=== PATIENT | female | born 1980 | race Caucasian/White ===

== ENCOUNTER 2023-08-23 08:00 | Outpatient (CLI) | payer BC, SELFPAY | END 2023-08-23 08:01 | disposition home or self-care (01) | LOC: NFLDREF 13:34 | PROVIDERS: Visit Provider Physician Assistant | DX: Z01.419 Encounter for gynecological examination (general) (routine) without abnormal findings (principal); Z13.6 Encounter for screening for cardiovascular disorders; Z13.1 Encounter for screening for diabetes mellitus; Z13.29 Encounter for screening for other suspected endocrine disorder; Z13.9 Encounter for screening, unspecified; Z12.4 Encounter for screening for malignant neoplasm of cervix | CPT/HCPCS: 80053; 80061; 84443 ==

== ENCOUNTER 2023-08-24 07:56 | Outpatient (CLI) | payer BC, SELFPAY | END 2023-08-24 07:57 | disposition home or self-care (01) | LOC: NFLDREF 09-09 09:02 | PROVIDERS: Visit Provider Physician Assistant | DX: Z01.419 Encounter for gynecological examination (general) (routine) without abnormal findings (principal); R74.8 Abnormal levels of other serum enzymes | CPT/HCPCS: 80074; 80076; 86039; 86256; 86376; 87517 ==

== ENCOUNTER 2023-08-25 14:45 | Outpatient (CLI) | payer BC, SELFPAY | END 2023-08-25 14:46 | disposition home or self-care (01) | LOC: NFLDREF 09-08 11:18 | PROVIDERS: Visit Provider Physician Assistant | DX: R74.8 Abnormal levels of other serum enzymes (principal) | CPT/HCPCS: 85610 ==

== ENCOUNTER 2023-08-30 14:07 | Outpatient (CLI) | payer BC, SELFPAY | END 2023-08-30 14:08 | disposition home or self-care (01) | LOC: NFLDREF 09-13 10:27 | PROVIDERS: Visit Provider Physician Assistant | DX: B19.10 Unspecified viral hepatitis B without hepatic coma (principal) | CPT/HCPCS: 80076; 86703 ==

== ENCOUNTER 2023-09-02 15:55 | Outpatient (CLI) | payer BC, SELFPAY ==
--- NOTE | 2023-09-02 16:00 | US_ITS ---
Patient: KUSH YING Facility:?[facility] RIS Patient ID:?[id number] Site Patient ID:?[id number]. Site :?1980 Study:?US-Abdomen RUQ-09/02/2023 4:31:07 PM Ordering Physician:LEEANN SEPTEMBER Final Report: INDICATION: Markedly elevated liver enzymes. COMPARISON: None. TECHNIQUE: Real time candelario scale imaging and color Doppler analysis was performed of the right upper quadrant. FINDINGS: Liver: The liver is normal in size measuring 16.0 cm in length. Normal echogenicity. No focal liver lesions identified. Gallbladder: No stones or sludge. No wall thickening or pericholecystic fluid. Negative sonographic Chou sign. Bile ducts: The common bile duct measures 5 mm in diameter. Pancreas: Normal where seen. Right kidney: The right kidney measures 10.3 cm in length. Mild pelvocaliectasis. No calculus or mass. Vascular: Normal caliber proximal abdominal aorta. The IVC and main portal vein appear patent. IMPRESSION: 1. Normal sonographic appearance of the liver. 2. Mild right renal pelvocaliectasis. 3. Exam otherwise unremarkable. Dictated by Diane Sanches MD @ 09/03/2023 2:58:00 AM Signed by:?Diane Sanches MD @09/03/2023 2:58:00 AM (Electronic Signature)
== END 2023-09-02 15:56 | disposition home or self-care (01) ==
LOC: US 15:57
PROVIDERS: Visit Provider Physician Assistant
DX: R74.8 Abnormal levels of other serum enzymes (principal)
CPT/HCPCS: 76705

== ENCOUNTER 2023-11-15 15:35 | Outpatient (CLI) | payer BC, SELFPAY ==
--- NOTE | 2023-11-15 15:20 | MM_ITS ---
Patient: KUSH YING Facility:?[facility] RIS Patient ID:?[id number] Site Patient ID:?[id number]. Site :?[id number] Study:?XRay-Breast Bilateral 3D W/CAD-11/15/2023 5:08:59 PM Ordering Physician:Miguel September Final Report: BILATERAL DIGITAL SCREENING MAMMOGRAM WITH COMPUTER-AIDED DETECTION AND TOMOSYNTHESIS CLINICAL HISTORY: Routine screening exam. COMPARISON: 03/16/2021, 04/05/2014. TECHNIQUE: Digital mammogram in CC and MLO projections including computer-aided detection (CAD). Tomosynthesis was used in this interpretation. BREAST COMPOSITION: The breasts are heterogeneously dense, which may obscure small masses. FINDINGS: RIGHT Breast: No suspicious findings. LEFT Breast: Focal asymmetric density within the retroareolar plane 7 cm from the nipple, slightly medial. IMPRESSION: LEFT breast asymmetry/mass. RECOMMENDATIONS: Additional mammographic views of the LEFT breast including 3D spot compression CC/MLO. LEFT breast ultrasound may also be required. BI-RADS Category 0: Incomplete: Need Additional Imaging Evaluation and/or Prior Mammograms for Comparison [facility] will contact the patient for follow-up. A lay language report of this examination will be provided to the patient. Dictated by Parmjit Chicas MD @ 11/16/2023 9:19:33 AM jj/Dictated by: Parmjit Chicas MD @ 11/16/2023 9:19:00 AM Signed by:?Parmjit Chicas MD @11/16/2023 12:02:29 PM (Electronic Signature)
--- OUTSIDE RECORDS SUMMARY | 2023-11-15 15:38 | XMS_ITS | Clinical Summary ---
Author Name Unknown Organization [facility] Address [place], [place] [address] Care Team Providers Care Assistant Facility Manager Name Role Phone Corrine Lomeli MD Unavailable [phone] Pcp, No Primary Care Provider Unavailabl e Allergies No known active allergies Medications Medication Sig Dispensed Refills Start Date End Date Status azithromycin (ZITHROMAX) 250 mg tabletIndications:Cou gh Take by mouth. 2 oral first day, then 1 oral daily from days 2-5 6 tablet 0 10/13/2011 Active albuterol (PROVENTIL; VENTOLIN) 90 mcg/actuation inhalerIndications:Co ugh Inhale 2 Puffs by mouth. As needed 1 Inhaler 0 10/13/2011 Active Active Problems Problem Noted Date Diagnosed Date Overweight(278.02) Family History Medical History Relation Name Comments Good Health Mother Relation Name Status Comments Mother Social History Tobacco Use Types Packs/Day Years Used Date Smoking Tobacco: Former Smokeless Tobacco: Never Alcohol Use Standard Drinks/Week Comments Yes 0 (1 standard drink = 0.6 oz pur e alcohol) socially Sex and Gender Information Value Date Recorded Sex Assigned at Not on file Gender Identity Not on file Sexual Orientation Not on file Obstetrics History Last Filed Vital Signs Vital Sign Reading Time Taken Comments Blood Pressure 100/72 10/13/2011 8:42 AM CDT Pulse 99 10/13/2011 8:42 AM CDT Temperature 36.9 ??C (98.5 ??F) 10/13/2011 8:42 AM CD T Respiratory Rate 14 02/16/2010 3:15 PM CDT Oxygen Saturation 94% 10/13/2011 8:42 AM CDT Inhaled Oxygen Concentration - - Weight 97.8 kg (215 lb 8 oz) 10/13/2011 8:42 AM CDT Height 162.6 cm (5' 4) 12/02/2008 11:14 AM CDT Body Mass Index 36.99 12/02/2008 11:14 AM CDT Plan of Treatment Health Maintenance Due Date Last Done Comments Tdap 10/17/1990 Depression screening for age 12+ 1991 HIV for age 15-65 10/17/1994 BMI (ht and wt on same day) for age 18+ 10/17/1997 Hepatitis C screening for age 18-79 10/17/1997 Tetanus booster 1999 COVID-19 vaccine series ( season) 2023 Influenza for age 9-49 02/26/2024 Pap test for age 21-65 08/16/2026 , 08/16/2023, 02/02/2021, Additional history exists Pneumococcal series for age 6-64 Aged Out No longer eligible based on patient's age to complete this topic Procedures Procedure Name Priority Date/Time Associated Diagnosis Comments HPV THIN PREP Routine 08/16/2023 6:30 PM CARTON INSPECTOR from Last 3 Months or Most Recently Relevant to Health Maintenance Results * HPV HIGH RISK (08/16/2023 6:30 PM CARTON INSPECTOR) TYPE 16 Negative Negative 08/19/2023 1:42 PM CARTON INSPECTOR [facility] LAB[facility] TYPE 18 Negative Negative 08/19/2023 1:42 PM CARTON INSPECTOR [facility] TRAL LABORATORY OTHER HIGH RISK TYPES Negative Negative 08/19/2023 1:42 PM CARTON INSPECTOR [facility] TRAL LABORATORY Other (Cervical) 08/16/2023 6:30 PM CARTON INSPECTOR 08/18/2023 9:58 AM CARTON INSPECTOR Narrative [facility] - 08/19/2023 1:42 PM CARTON INSPECTOR HPV types 16, 18, 31, 33, 35, 39, 45, 51, 52, 56, 58, 59, 66 and 68 DNA were undetectable or below the pre-set threshold. Methodology: [employer] 4800 HPV Test Charissa L Alessio [facility] LABORATORY-CENTRAL LABORATORY [address] [place] [address], from Last 3 Months or Most Recently Relevant to Health Maintenance Care Teams Assistant Facility Manager Relationship Specialty Start Date End Date Pcp, No . PCP - General 08/18/16 Corrine Lomeli MD 09/17/08
--- OUTSIDE RECORDS SUMMARY | 2023-11-15 15:38 | XMS_ITS | Continuity of Care Document ---
Author Name Unknown Address [address] [place] [address] Phone [phone] Organization [facility], [facility] Address [address] [place] [address] Assessment Encounter Date Assessment Date Assessment LastModified by Organization Details LastModified Time 10/25/2023 10/25/2023 43 Y/O FEMALE, REFERRED FOR MILD RT HYDRO. ASYMPTOMATIC. REVIEWED FINDINGS AND DISCUSSED OPTION. REVIEWED RENAL U/S. PLAN SCHEDULE LASIX RENAL SCAN TO ASSESS RT RENAL FUNCTION AND IF ANY SIGNIFICANT HYDRO NOTED.WILL CALL RESULTS rugart Not available 10/26/2023 13:52:45 Plan of Treatment Reminders Order Date Submit Date Provider Last Modified By Organization Details Last Modified Time Details Appointments None record ed. Lab None record ed. Referral None record ed. Procedures None record ed. Surgeries None record ed. Imaging None record ed. Medication Orders None record ed. Patient TargetsNo targets recorded. Patient InstructionsNo instructions recorded. Reason for Referral None Reported. Problems Name Status Onset Date Resolution Date Notes Provider Name and Address Organization Details Recorded Time Hydronephrosis Active 10/26/19 24 Jonas Tariq MD [address] [place] [address],[address], [place], [address], [facility] 10/26/2023 13:52:52 Problem Notes None recorded. Medical Equipment None Reported. Allergies Allergen ID Allergen Name Allergen Category Reaction Reaction Severity Criticality Documentation Date Start Date Code Code System Note Provider Name and Address Organization Details Recorded Time 716154 Demerol medicatio n Not available Not available Not available 10/25/2023 82535 1 RxNorm Jonas Tariq MD [address] [place] [address],[address] [place] [address], [phone], [facility] 16:30:48 Medications Name Sig Start Date Stop Date Status Note LastModified by Organization Details LastModified Time tenofovir disoproxil fumarate 300 mg tablet active Not Available Not Available Not Available cyclobenzaprine 5 mg tablet 10/24 completed Not Available Not Available Not Available bupropion HCl XL 150 mg 24 hr tablet, extended release active Not Available Not Available Not Available Vitals Date Recorded Body height Body mass index (BMI) Body weight Provider Name and Address Organization Details Last Updated DateTime 10/25/2023 162.56 cm 32.6 kg/m2 98237.55 g Jonas Tariq MD [address] [place] [address],[address], [address] [place] [address] Urolog 10/25/2023 16:30:43 Social History Question Answer Notes LastModified by Organizat ion Details LastModified Time Tobacco Smoking Status Current Every Day Smoker Jonas Tariq MD [address] [place] [address], [address], [facility] 10/25/2023 16:31:27 What Is Your Level Of Alcohol Consumption? None Information not available 10/25/2023 What Was The Date Of Your Most Recent Tobacco Screening? 10/25/2023 Information not available 10/25/2023 Sex: Female Functional Status None recorded. Mental Status None recorded. Family History Nothing Reported. Medical History Condition Response Diabetes N Sexually Transmitted Infection N Other N Bleeding Disorder N High Blood Pressure N Kidney Stones N High Cholesterol N GERD/Acid Reflux N Heart Disease N Cancer N Lung Disease N Depression N Gynecological HistoryNo gynecological history recorded. Obstetrics History GPAL:G 0 P 0 0 0 0 Immunizations Vaccine Type Date Status Provider Name and Address Organization Details Recorded Time Tdap 11/11/2011 completed Jonas Tariq MD [address] [place] [address],[address], [address], [facility] 10/25/2023 16:30:53 Td (adult), 2 Lf tetanus toxoid, preservative free, adsorbed 08/16/2023 completed Jonas Tariq MD [address] [place] [address],[address], [address], [facility] 10/25/2023 16:30:53 influenza, live, intranasal, quadrivalent 04/15/2014 completed Jonas Tariq MD [address] [place] [address],[address], [address], [facility] 10/25/2023 16:30:53 Influenza, injectable, MDCK, preservative free 04/08/2016 completed Jonas Tariq MD [address] [place] [address],[address], [address], [facility] 10/25/2023 16:30:53 Past Encounters Encounter ID Performer Location Encounter Start Date Encounter Closed Date Diagnosis/Indication Diagnosis SNOMED-CT Code [id number] Jonas Tariq MD [facility] [address] [place] [id number] 10/25/2023 16:21:57 10/31/2023 11:12:01 Hydronephrosis [id number] Health Concerns Section Related Observation LastModified by Organization Detai ls LastModified Time None Recorded Concern Status LastModified by Organization Details LastModified Time None Recorded Payers Encounter Date Sequence Insurance Name Policy Number Policy Rodney Covered Member ID Rodney Member ID Guarantor Name 10/25/2023 1 [facility] [id number] Radha Phillips [id number] Radha Phillips Notes Date Note Type Note Provider Name and Address Organization Details Recorded Time 10/25/2023 text/html HPI Notes: 43 YOF HERE FOR MILD RT PELVICALYECTA SIS. SEEN ON US.. ASYMPTOMATIC. SEEN ON EXAM FOR LIVER EVALUATION. Jonas Tariq MD [address] [place] [address],[facility] [address], [place], [address], [facility] 10/26/2023 13:53:12 OBGyn Episode No OBEpisode recorded.
--- OUTSIDE RECORDS SUMMARY | 2023-11-15 15:38 | XMS_ITS | Data Portability ---
Author Name Unknown Address [address] [place] [address] Phone [phone] Organization [facility], [facility] Address [address] [place] [address] Assessment Encounter Date Assessment Date Assessment LastModified by Organization Details LastModified Time 10/25/2023 10/25/2023 43 Y/O FEMALE, REFERRED FOR MILD RT HYDRO. ASYMPTOMATIC. REVIEWED FINDINGS AND DISCUSSED OPTION. REVIEWED RENAL U/S. PLAN SCHEDULE LASIX RENAL SCAN TO ASSESS RT RENAL FUNCTION AND IF ANY SIGNIFICANT HYDRO NOTED.WILL CALL RESULTS Not available 10/26/2023 13:52:45 Plan of Treatment [...] Hydronephrosis Active 10/26/19 24 Jonas Tariq MD [address] [place] [address],[address], [address], [facility] 10/26/2023 13:52:52 Problem Notes None recorded. Medical Equipment None Reported. Allergies Allergen ID Allergen Name Allergen Category Reaction Reaction Severity Criticality Documentation Date Start Date Code Code System Note Provider Name and Address Organization Details Recorded Time 497511 Demerol medicatio n Not available Not available Not available 10/25/2023 87405 1 RxNorm Jonas Tariq MD [address] [place] [address],[address], [address], [facility] 16:30:48 Medications Name Sig [...] Updated DateTime 10/25/2023 162.56 cm 32.6 kg/m2 94112.55 g Jonas Tariq MD [address] [place] [address], [phone] 10/25/2023 16:30:43 Social History Question Answer Notes LastModified by Organizat ion Details LastModified Time Tobacco Smoking Status Current Every Day Smoker Jonas Tariq MD [address] [place] [address], [phone], [facility] 10/25/2023 16:31:27 What Is Your Level Of [...] Time Tdap 11/11/2011 completed Jonas Tariq MD [address] [place] [address],[address], [address], [facility] 10/25/2023 16:30:53 Td (adult), 2 Lf tetanus toxoid, preservative free, adsorbed 08/16/2023 completed Jonas Tariq MD [address] [place] [address], [address], [facility] 10/25/2023 16:30:53 influenza, live, intranasal, quadrivalent 04/15/2014 completed Jonas Tariq MD [address] [place] [address],[address] [place] [address], [phone], [facility] 10/25/2023 16:30:53 Influenza, injectable, MDCK, preservative free 04/08/2016 completed Jonas Tariq MD [address] [place] [address],[facility] [address], [address], [facility] 10/25/2023 16:30:53 Past Encounters Encounter ID Performer Location Encounter Start Date Encounter Closed Date Diagnosis/Indication Diagnosis SNOMED-CT Code [id number] Jonas Tariq MD [facility] [address] [place] [id number] 10/25/2023 16:21:57 10/31/2023 11:12:01 Hydronephrosis [id number] Health Concerns Section Related Observation LastModified by Organization Detai ls LastModified Time None Recorded Concern Status LastModified by Organization Details LastModified Time None Recorded Advance Directives Directive None Recorded Payers Encounter Date Sequence Insurance Name Policy Number Policy Rodney Covered Member ID Rodney Member ID Guarantor Name 10/25/2023 1 [facility] [id number] Radha Phillips [id number] Radha Phillips Notes Date Note Type Note Provider Name and Address Organization Details Recorded Time 10/25/2023 text/html HPI Notes: 43 YOF HERE FOR MILD RT PELVICALYECTA SIS. SEEN ON US.. ASYMPTOMATIC. SEEN ON EXAM FOR LIVER EVALUATION. Jonas Tariq MD [address] [place] [address],[address], [place], [address], [facility] 10/26/2023 13:53:12 OBGyn Episode No OBEpisode recorded.
== END 2023-11-15 15:36 | disposition home or self-care (01) ==
LOC: MAMMO 15:35
PROVIDERS: Visit Provider Physician Assistant
DX: Z12.31 Encounter for screening mammogram for malignant neoplasm of breast (principal); N63.20 Unspecified lump in the left breast, unspecified quadrant; R92.2 Inconclusive mammogram
CPT/HCPCS: 77063; 77067

== ENCOUNTER 2023-11-29 11:55 | Outpatient (CLI) | payer BC, SELFPAY ==
--- OUTSIDE RECORDS SUMMARY | 2023-11-29 11:59 | XMS_ITS | Clinical Summary ---
Author Organization [facility] Address [place], [place] [address] Care Team Providers Care Box Office Manager Name Role Phone Corrine Lomeli MD Unavailable [phone] Pcp, No Primary Care Provider Unavailabl [...] 10/17/1997 Tetanus booster 1999 COVID-19 vaccine series (2022-24 season) 2023 Influenza for age 9-49 02/26/2024 Pap test for age 21-65 08/16/2026 , 08/16/2023, 02/02/2021, Additional history exists Pneumococcal series for age 6-64 Aged Out No longer eligible based on patient's age to complete this topic Procedures Procedure Name Priority Date/Time Associated Diagnosis Comments HPV THIN PREP Routine 08/16/2023 6:30 PM TAR ROOFER from Last 3 Months or Most Recently Relevant to Health Maintenance Results * HPV HIGH RISK (08/16/2023 6:30 PM TAR ROOFER) TYPE 16 Negative Negative 08/19/2023 1:[address] [facility] TR[facility] LABORATORY TYPE 18 Negative Negative 08/19/2023 1:42 PM TAR ROOFER [facility] TRAL LABORATORY OTHER HIGH RISK TYPES Negative Negative 08/19/2023 1:42 PM TAR ROOFER [facility] TRAL LABORATORY Other (Cervical) 08/16/2023 6:30 PM TAR ROOFER 08/18/2023 9:58 [address] [facility] - 08/19/2023 1:42 PM TAR ROOFER HPV types 16, 18, 31, 33, 35, 39, 45, 51, 52, 56, 58, 59, 66 and 68 DNA were undetectable or below the pre-set threshold. Methodology: [employer] 4800 HPV Test Charissa [facility] [employer] LABORATORY-CENTRAL LABORATORY [address] [place] [address], from Last 3 Months or Most Recently Relevant to Health Maintenance Care Teams Box Office Manager Relationship Specialty Start Date End Date Pcp, No . PCP - General 08/18/16 Corrine Lomeli MD 09/17/08
--- OUTSIDE RECORDS SUMMARY | 2023-11-29 11:59 | XMS_ITS | Data Portability ---
Author Organization [facility], [facility] Address [address] [place] [address] [place] [address] Assessment Encounter Date Assessment Date Assessment LastModified [...] Hydronephrosis Active 10/26/19 24 Jonas Tariq MD [address] [place] [address],[address] [place] [address], [address], [facility] 10/26/2023 13:52:52 Problem Notes None recorded. Medical Equipment None Reported. Allergies Allergen ID Allergen Name Allergen Category Reaction Reaction Severity Criticality Documentation Date Start Date Code Code System Note Provider Name and Address Organization Details Recorded Time 092394 Demerol medicatio n Not available Not available Not available 10/25/2023 47227 1 RxNorm Jonas Tariq MD [address] [place] [address],[address] [place] [address], [phone], [facility] 16:30:48 Medications Name Sig Start Date [...] Updated DateTime 10/25/2023 162.56 cm 32.6 kg/m2 43399.55 g Jonas Tariq MD [address] [place] [address],[address], [phone] [place] [address] Urology 10/25/2023 16:30:43 Social History Question Answer Notes LastModified by Organizat ion Details LastModified Time Tobacco Smoking Status Current Every Day Smoker Jonas Tariq MD [address] [place] [address],[address], [address], [facility] 10/25/2023 16:31:27 What Is Your Level Of Alcohol Consumption? None Information not available 10/25/2023 What Was The Date Of Your Most Recent Tobacco Screening? 10/25/2023 Information not available 10/25/2023 Sex: Female Functional Status None recorded. Mental Status None recorded. Family History Nothing Reported. Medical History Condition Response Sexually Transmitted Infection N Diabetes N Other N Bleeding Disorder N High Blood Pressure N Kidney Stones N High Cholesterol N GERD/Acid Reflux N Heart Disease N Cancer N Lung Disease N Depression N Gynecological HistoryNo gynecological history recorded. Obstetrics History GPAL:G 0 P 0 0 0 0 Immunizations Vaccine Type Date Status Provider Name and Address Organization Details Recorded Time Tdap 11/11/2011 completed Jonas Tariq MD [address] [place] [address],[address] [place] [address], [phone], [facility] 10/25/2023 16:30:53 Td (adult), 2 Lf tetanus toxoid, preservative free, adsorbed 08/16/2023 completed Jonas Tariq MD [address] [place] [address],[address], [place], [address], [facility] 10/25/2023 16:30:53 Influenza, live, quadrivalent, intranasal 04/15/2014 completed Jonas Tariq MD [address] [facility],[address], [place], [address], [facility] 10/25/2023 16:30:53 Influenza, MDCK, trivalent, PF 04/08/2016 completed Jonas Tariq MD [address] [place] [address],[address], [place], [address], [facility] 10/25/2023 16:30:53 Past Encounters Encounter ID Performer Location Encounter Start Date Encounter Closed Date Diagnosis/Indication Diagnosis SNOMED-CT Code [id number] Jonas Tariq MD [facility] [address] [place] [address] 10/25/2023 16:21:57 10/31/2023 11:12:01 Hydronephrosis [id number] Health Concerns Section Related Observation LastModified by Organization Detai ls LastModified Time None Recorded Concern Status LastModified by Organization Details LastModified Time None Recorded Advance Directives Directive None Recorded Payers Encounter Date Sequence Insurance Name Policy Number Policy Rodney Covered Member ID Rodney Member ID Guarantor Name 10/25/2023 1 [facility] [id number] Radha Phillips [id number] Radha Phillips Notes Date Note Type Note Provider Name and Address Organization Details Recorded Time 10/25/2023 text/html HPI Notes: 43 YOF HERE FOR MILD RT PELVICALYECTA SIS. SEEN ON US.. ASYMPTOMATIC. SEEN ON EXAM FOR LIVER EVALUATION. Jonas Tariq MD [address] [place] [address],[address], [place], [address], [facility] 10/26/2023 13:53:12 OBGyn Episode No OBEpisode recorded.
--- NOTE | 2023-11-29 12:00 | CRLHL7_ITS ---
For Patients: As a result of the Century Cures Act, medical imaging exams and procedure reports are released immediately into your electronic medical record. You may view this report before your referring provider. If you have questions, please contact your health care provider. INDICATION: Hydronephrosis not otherwise specified. (Reported mild right renal pelvicaliectasis on a prior right upper quadrant ultrasound September 02, 2023). TECHNIQUE: 10.1 mCi Tc-99m labeled Mag 3. 20 mg IV Lasix at 20 minutes. COMPARISON: None. Correlation is made with a right upper quadrant ultrasound September 02, 2023. FINDINGS: Symmetric flow to the kidneys. Symmetrical extraction and excretion of tracer bilaterally. Symmetric T1 half-time after Lasix administration 28.3 minutes for each kidney. The images provided suggest bilateral mild pelvocaliectasis right minimally more so than the left without yu hydronephrosis. Differential renal function 67 percent on the left and 33 percent on the right. IMPRESSION: 1. No scintigraphic evidence for hydronephrosis. 2. The scintigraphic appearance suggests bilateral pelvocaliectasis right minimally more so than the left without yu hydronephrosis. 3. Symmetric T1 half-time after Lasix administration. Dictated by Gianfranco Riddle MD @ 11/30/2023 9:34:09 AM (Electronically Signed)
== END 2023-11-29 11:56 | disposition home or self-care (01) ==
LOC: NM 11:58
PROVIDERS: Visit Provider Urology
DX: N13.30 Unspecified hydronephrosis (principal)
CPT/HCPCS: 78708; A9562; J1940

== ENCOUNTER 2023-12-06 08:55 | Outpatient (CLI) | payer BC, SELFPAY ==
--- NOTE | 2023-12-06 08:45 | CRLHL7_ITS ---
For Patients: As a result of the Century Cures Act, medical imaging exams and procedure reports are released immediately into your electronic medical record. You may view this report before your referring provider. If you have questions, please contact your health care provider. DIGITAL DIAGNOSTIC LEFT MAMMOGRAM USING TOMOSYNTHESIS AND COMPUTER-AIDED DETECTION LEFT BREAST ULTRASOUND CLINICAL HISTORY: LEFT breast mass/asymmetry. COMPARISON: 11/15/2023. TECHNIQUE: Digital LEFT mammogram in two projections with computer-aided detection. Tomosynthesis was used in this interpretation. Real-time ultrasound imaging of LEFT breast with imaging documentation. BREAST COMPOSITION: The breast is heterogeneously dense, which may obscure small masses. FINDINGS: 3D spot compression CC/MLO LEFT breast mammogram images submitted. Decreased conspicuity of previously noted asymmetric density. No architectural distortion or suspicious mass. No suspicious calcifications Targeted LEFT breast ultrasound performed in the retroareolar plane corresponding with the mammographic density. No fluid collection or mass. IMPRESSION: No suspicious findings. No evidence of malignancy. RECOMMENDATIONS: Annual bilateral screening mammography. Results and recommendations were discussed with the patient. BI-RADS Category 2: Benign A lay language report of this examination will be provided to the patient. Dictated by Parmjit Chicas MD @ 12/06/2023 10:11:09 AM neoj/Dictated by: Parmjit Chicas MD @ 12/06/2023 10:11:00 AM (Electronically Signed)
--- OUTSIDE RECORDS SUMMARY | 2023-12-06 08:58 | XMS_ITS | Clinical Summary ---
Author Organization [facility] Address [place], [place] [address] Care Team Providers Care Forgesmith Name Role Phone Corrine Lomeli MD Unavailable [phone] Pcp, No Primary Care Provider Unavailabl [...] HPV THIN PREP Routine 08/16/2023 6:30 PM [employer] from Last 3 Months or Most Recently Relevant to Health Maintenance Results * HPV HIGH RISK (08/16/2023 6:30 PM [employer]) TYPE 16 Negative Negative 08/19/2023 1:42 PM [employer] [facility] TYPE 18 Negative Negative 08/19/2023 1:42 PM [facility] [employer] [facility] OTHER HIGH RISK TYPES Negative Negative 08/19/2023 1:42 PM [employer] [facility] Other (Cervical) 08/16/2023 6:30 PM [employer] 08/18/2023 9:58 AM [employer]ANE [employer]TER Narrative [facility] - 08/19/2023 1:42 PM [employer] HPV types 16, 18, 31, 33, 35, 39, 45, 51, 52, 56, 58, 59, 66 and 68 DNA were undetectable or below the pre-set threshold. Methodology: [employer] 4800 HPV Test Charissa [facility] [address] [place] [address], from Last 3 Months or Most Recently Relevant to Health Maintenance Care Teams Forgesmith Relationship Specialty Start Date End Date Pcp, No . PCP - General 08/18/16 Corrine Lomeli MD 09/17/08
--- OUTSIDE RECORDS SUMMARY | 2023-12-06 08:58 | XMS_ITS | Data Portability ---
Author Organization [facility], [facility] Address [address] [place] [address] Assessment Encounter Date Assessment Date Assessment LastModified [...] instructions recorded. Reason for Referral None Reported. Results Created Date Observation Date Name Description Value Unit Range Abnormal Flag LastModifiedBy Organization Detail LastModifiedTime 12/01/1911/29/2023 NM, kidne y scan No observ ation record ed. [email or web address] [facility] [address] [place], [address], 12/01/2023 09:24:08 Result Notes None recorded. Problems Name Status Onset Date Resolution Date Notes Provider Name and Address Organization Details Recorded Time Hydronephrosis Active 10/26/19 24 Jonas Tariq MD [address] [facility] [address], [place], [address], [place] [facility] 10/26/2023 13:52:52 Problem Notes None recorded. Procedures Surgical History None recorded. Imaging Results Imaging Date Name Status LastModified by Organiz ation Details LastModified Time 11/29/2023 NM, kidney scan active [email or web address] [facility] [address] [place], [address], 12/01/2023 09:24:08 Procedure Notes None recorded. Medical Equipment None Reported. Allergies Allergen ID Allergen Name Allergen Category Reaction Reaction Severity Criticality Documentation Date Start Date Code Code System Note Provider Name and Address Organization Details Recorded Time [id number] Demerol medicatio n Not available Not available Not available 10/25/2023 65112 1 RxNorm Jonas Tariq MD [address] [place] [address],[place] [address] [place] [address], [phone], [facility] 16:30:48 Medications Name Sig Start Date [...] Updated DateTime 10/25/2023 162.56 cm 32.6 kg/m2 00544.55 g Jonas Tariq MD [address] [place] [address],[address], [place], [address] 10/25/2023 16:30:43 Social History Question Answer Notes LastModified by Organizat ion Details LastModified Time Tobacco Smoking Status Current Every Day Smoker Jonas Tariq MD [address] [place] [address],[address], [place], [address], [facility] 10/25/2023 16:31:27 What Is Your Level Of Alcohol Consumption? None Information not available 10/25/2023 What Was The Date Of Your Most Recent Tobacco Screening? 10/25/2023 Information not available 10/25/2023 Sex: Female Functional Status None recorded. Mental Status None recorded. Family History Nothing Reported. Medical History Condition Response Other N High Blood Pressure N Kidney Stones N Lung Disease N Depression N GERD/Acid Reflux N Sexually Transmitted Infection N Cancer N High Cholesterol N Diabetes N Bleeding Disorder N Heart Disease N Gynecological HistoryNo gynecological history recorded. Obstetrics History GPAL:G 0 P 0 0 0 0 Immunizations Vaccine Type Date Status Provider Name and Address Organization Details Recorded Time Tdap 11/11/2011 completed Jonas Tariq MD [address] [place] [address],[address], [place], [address], [facility] 10/25/2023 16:30:53 Td (adult), 2 Lf tetanus toxoid, preservative free, adsorbed 08/16/2023 completed Jonas Tariq MD [address] [place] [address],[address] [place] [address], [phone], [facility] 10/25/2023 16:30:53 Influenza, live, quadrivalent, intranasal 04/15/2014 completed Jonas Tariq MD [address] [place] [address],[address], [address], [facility] 10/25/2023 16:30:53 Influenza, MDCK, trivalent, PF 04/08/2016 completed Jonas Tariq MD [address] [place] [address],[address], [address], [facility] 10/25/2023 16:30:53 Past Encounters Encounter ID Performer Location Encounter Start Date Encounter Closed Date Diagnosis/Indication Diagnosis SNOMED-CT Code [id number] Jonas Tariq MD [facility] [address] [place] [address] 10/25/2023 16:21:57 10/31/2023 11:12:01 Hydronephrosis [id number] Health Concerns Section Related Observation LastModified by Organization Detai ls LastModified Time None Recorded Concern Status LastModified by Organization Details LastModified Time None Recorded Advance Directives Directive None Recorded Payers Encounter Date Sequence Insurance Name Policy Number Policy Rodney Covered Member ID Rodney Member ID Guarantor Name 10/25/2023 1 [facility] [id number] Radha Phillips [id number] Radha Phillips Notes Date Note Type Note Provider Name and Address Organization Details Recorded Time 10/25/2023 text/html HPI Notes: 43 YOF HERE FOR MILD RT PELVICALYECTA SIS. SEEN ON US.. ASYMPTOMATIC. SEEN ON EXAM FOR LIVER EVALUATION. Jonas Tariq MD [address] [facility],[address], [place], [address], [place] [facility] [place] [facility] 10/26/2023 13:53:12 OBGyn Episode No OBEpisode recorded.
--- NOTE | 2023-12-06 09:15 | CRLHL7_ITS ---
For Patients: As a result of the Cures Act, medical imaging exams and procedure reports are released immediately into your electronic medical record. You may view this report before your referring provider. If you have questions, please contact your health care provider. PLEASE SEE DIGITAL DIAGNOSTIC LEFT MAMMOGRAM PERFORMED SAME DAY CRL:sandie hooper/Dictated by: Parmjit Chicas MD @ 12/06/2023 10:11:00 AM (Electronically Signed)
== END 2023-12-06 08:56 | disposition home or self-care (01) ==
LOC: MAMMO 08:55
PROVIDERS: Visit Provider Physician Assistant
DX: N63.20 Unspecified lump in the left breast, unspecified quadrant (principal); R92.8 Other abnormal and inconclusive findings on diagnostic imaging of breast
CPT/HCPCS: 76642; 77065; G0279